=== PATIENT | female | born 2000 | race Caucasian/White ===

== ENCOUNTER 2019-09-26 14:21 | Emergency (ER) | payer SELFPAY ==
[~2019-09-26] VITALS: Ht 167.6 cm; Wt 54.9 kg
[2019-09-26 14:33] VITALS: BP 114/77; Ht 167.6 cm; Wt 54.9 kg
== END 2019-09-26 15:08 | disposition home or self-care (01) ==
LOC: ED 14:21
DX: R04.0 Epistaxis (principal); Z13.9 Encounter for screening, unspecified